=== PATIENT | male | born 1995 | race Two or more races ===

== ENCOUNTER 2019-03-09 14:09 | Emergency (ER) | payer SELFPAY ==
[2019-03-09] MEDS ORDERED: HYDROCODONE/ACETAMINOPHEN 5-325 MG TABLET PO ONE (14:50)
[2019-03-09] MEDS ORDERED: IBUPROFEN 800 MG TABLET PO ONE (14:50)
--- NOTE | 2019-03-09 14:52 | ER Document Report ---
ED Medical Screen (RME) - General Chief Complaint: Hand Injury Stated Complaint: RIGHT HAND INJURY Time Seen by Provider: 03/09/19 14:48 Mode of Arrival: Ambulatory Information source: Patient Notes: 23-year-old male presented to ED for complaint of pain and injury to the right hand. He was hanging decorations but he fell from the chair landing on his hand. He does have bruising and swelling to the right hand in the area of the metacarpal. His right fifth finger is also swollen. We will treat the patient with ibuprofen and one [place] and have him get an x-ray of the hand. Patient is alert oriented respirations regular nonlabored he is a former smoker does not drink or use any illicit drugs. He does hang drywall for living and has a history of a left elbow fracture with surgical repair. I have greeted and performed a rapid initial assessment of this patient. A comprehensive ED assessment and evaluation of the patient, analysis of test results and completion of medical decision making process will be conducted by an additional ED providers. TRAVEL OUTSIDE OF THE [place] IN LAST 30 DAYS: No Past Medical History - Social History Chew tobacco use (# tins/day): No Frequency of alcohol use: None Drug Abuse: None Physical Exam - Vital signs Vitals: Temp Pulse Resp BP Pulse Ox 97.6 F 67 20 123/60 100 03/09/19 14:18 03/09/19 14:18 03/09/19 14:18 03/09/19 14:18 03/09/19 14:18 Course - Vital Signs Vital signs: Temp Pulse Resp BP Pulse Ox 97.6 F 67 20 123/60 100 03/09/19 14:18 03/09/19 14:18 03/09/19 14:18 03/09/19 14:18 03/09/19 14:18
--- NOTE | 2019-03-09 16:02 | RADIOLOGY REPORT (SQ) ---
EXAM DESCRIPTION: HAND RIGHT 3 VIEWS COMPLETED DATE/TIME: 03/09/2019 3:08 pm REASON FOR STUDY: injury to right hand swelling and pain COMPARISON: None. EXAM PARAMETERS: NUMBER OF VIEWS: Three views. TECHNIQUE: AP, lateral and oblique radiographic images acquired of the right hand. LIMITATIONS: None. FINDINGS: MINERALIZATION: Normal. BONES: Fracture of the 5th metacarpal with angulation. JOINTS: No effusions. SOFT TISSUES: Soft tissue swelling. No foreign body. OTHER: No other significant finding. IMPRESSION: FRACTURE OF THE 5TH METACARPAL WITH ANGULATION. TECHNICAL DOCUMENTATION: JOB ID: [id number] [employer]- All Rights Reserved Reading location - IP/workstation name: [email or web address]
--- NOTE | 2019-03-09 16:57 | ER Document Report ---
ED Hand/Wrist Injury - General Chief Complaint: Hand Pain Stated Complaint: RIGHT HAND INJURY Time Seen by Provider: 03/09/19 14:48 Mode of Arrival: Ambulatory Information source: Patient, Relative TRAVEL OUTSIDE OF THE [place] IN LAST 30 DAYS: No - HPI Injury to: Hand Onset: This morning - pt. was hanging decorations while on a chair when the chair slipped out from under him and he fell on R hand. He has no other injuries. - Related Data Allergies/Adverse Reactions: No Known Allergies Allergy (Unverified 03/09/19 14:55) Past Medical History - General Information source: Patient - Social History Smoking Status: Former Smoker Chew tobacco use (# tins/day): No Frequency of alcohol use: None Drug Abuse: None Family History: None Patient has suicidal ideation: No Patient has homicidal ideation: No Past Surgical History: Reports: Hx Orthopedic Surgery - left elbow Review of Systems - Review of Systems Constitutional: No symptoms reported EENT: No symptoms reported Cardiovascular: No symptoms reported Respiratory: No symptoms reported Gastrointestinal: No symptoms reported Musculoskeletal: See HPI, Joint pain - R hand Neurological/Psychological: No symptoms reported -: Yes All other systems reviewed and negative Physical Exam - Vital signs Vitals: Temp Pulse Resp BP Pulse Ox 97.6 F 67 20 123/60 100 03/09/19 14:18 03/09/19 14:18 03/09/19 14:18 03/09/19 14:18 03/09/19 14:18 - General General appearance: Appears well In distress: None - Extremities Hand: Tender - there is moderate TTP in the area of the 5th MC with min-mod STS. There is FROM of all digits and they are N/V intact. Flexor and extensor tendons are intact. Course - Re-evaluation Re-evalutation: 03/09/19 17:05 pt's exam unchanged -- I have explained to him that we will apply a splint today and give him the name of our orthopedist for probable cast when the swelling subsides. - Vital Signs Vital signs: Temp Pulse Resp BP Pulse Ox 97.6 F 67 20 123/60 100 03/09/19 14:18 03/09/19 14:18 03/09/19 14:18 03/09/19 14:18 03/09/19 14:18 - Diagnostic Test Radiology reviewed: Reports reviewed - 5th MC fx with angulation Procedures - Immobilization Right Hand 5th digit Time completed: 17:06 Pre-Proc Neuro Vasc Exam: Normal Immobilizer type: Ulnar Performed by: RN Post-Proc Neuro Vasc Exam: Normal Alignment checked and good: Yes Discharge - Discharge Clinical Impression: Fracture, metacarpal Qualifiers: Encounter type: initial encounter Metacarpal bone: fifth Fracture type: closed Metacarpal location: shaft Fracture alignment: displaced Laterality: right Qualified Code(s): S62.326A - Displaced fracture of shaft of fifth metacarpal bone, right hand, initial encounter for closed fracture Condition: Stable Disposition: HOME, SELF-CARE Additional Instructions: rest, splint, take meds as prescribed, return if worse Prescriptions: Hydrocodone/Acetaminophen [Mccoll 5-325 mg Tablet] 1 tab PO BID #14 tablet Referrals: TOMA DOWLING DO [ACTIVE STAFF] - Follow up as needed
[2019-03-09 18:01] VITALS: BP 121/75
== END 2019-03-09 18:07 | disposition home or self-care (01) ==
LOC: ER 14:09
DX: S62.326A Displaced fracture of shaft of fifth metacarpal bone, right hand, initial encounter for closed fracture (principal); W07.XXXA Fall from chair, initial encounter
CPT/HCPCS: 99283

== ENCOUNTER 2020-01-26 07:30 | Emergency (ER) | payer SELFPAY ==
[2020-01-26 08:55] LABS: ABSOLUTE EOSINOPHILS # (AUTO) 0.1 10^3/uL (0.0-0.6); ABSOLUTE LYMPHOCYTES (AUTO) 2.1 10^3/uL (0.5-4.7); ABSOLUTE MONOCYTES (AUTO) 0.4 10^3/uL (0.1-1.4); ABSOLUTE NEUT (AUTO) 3.2 10^3/uL (1.7-8.2); BASOPHILS % (AUTO) 0.3 % (0-2); HEMATOCRIT 46.7 % (37.9-51.0); LYMPHOCYTES % (AUTO) 36.2 % (13-45); MEAN CORPUSCULAR HEMOGLOBIN 31.2 pg (27.0-33.4); MEAN CORPUSCULAR HGB CONC 34.2 g/dL (32.0-36.0); MEAN CORPUSCULAR VOLUME 91 fl (80-97); MONOCYTES % (AUTO) 6.3 % (3-13); PLATELET COUNT 143 10^3/uL (150-450); RED BLOOD COUNT 5.12 10^6/uL (4.35-5.55); RED CELL DISTRIBUTION WIDTH 13.1 % (11.5-14.0); SEGMENTED NEUTROPHILS % (AUTO) 56.2 % (42-78); TOTAL CELLS COUNTED % (AUTO) 100 %; WHITE BLOOD COUNT 5.7 10^3/uL (4.0-10.5)
[2020-01-26 09:00] LABS: APPEARANCE,URINE CLEAR; BILIRUBIN,URINE NEGATIVE (NEGATIVE); COLOR,URINE STRAW; GLUCOSE, URINE NEGATIVE (NEGATIVE); KETONES,URINE NEGATIVE (NEGATIVE); LEUKOCYTE ESTERASE,URINE NEGATIVE (NEGATIVE); NITRITE,URINE NEGATIVE (NEGATIVE); PROTEIN,URINE NEGATIVE (NEGATIVE); URINE SPECIFIC GRAVITY 1.009; UROBILINOGEN,URINE NEGATIVE mg/dL (<2.0)
[2020-01-26 09:22] LABS: ALKALINE PHOSPHATASE 56 U/L (38-126); ANION GAP 8 (5-19); ASPARTATE AMINO TRANSFERASE 27 U/L (17-59); BILIRUBIN,TOTAL 0.9 mg/dL (0.2-1.3); BLOOD UREA NITROGEN 8 mg/dL (7-20); CARBON DIOXIDE 28 mmol/L (22-30); CHLORIDE 105 mmol/L (98-107); GLUCOSE 98 mg/dL (75-110); POTASSIUM 4.3 mmol/L (3.6-5.0); TOTAL PROTEIN 8.2 g/dL (6.3-8.2)
--- NOTE | 2020-01-26 10:01 | ER Document Report ---
ED Medical Screen (RME) - General Chief Complaint: Abdominal Pain Stated Complaint: ABDOMINAL PAIN Time Seen by Provider: 01/26/20 09:58 Mode of Arrival: Ambulatory Information source: Patient Notes: 01/26/20 07:37 - ED Nursing Note by ARIADNE MONTGOMERY [employer] Num: [id number] : 1995 Patient Age: 24 Patient reports that he has been having epigastric pain for the past 2 weeks. States that he has had this for a long time but it is intermittent episodes. Describes pain as burning. States that he vomits after ingesting food or fluid. my notes 24-year-old [place] male arrives with his with chief complaint of 2 to 3-year history of GERD PUD type symptoms but over the past several weeks has been having increased epigastric pain associated with vomiting especially 1 day after eating large meals or after drinking energy drinks containing t aurine. Patient smokes one third of pack per day but denies any alcohol use. He also denies any trauma. He does admit to some constipation periodically. No one in the family has any early GERD PUD or gallbladder issues or diabetic issues. TRAVEL OUTSIDE OF THE [place] IN LAST 30 DAYS: No - HPI Onset: Last week - Related Data Allergies/Adverse Reactions: No Known Allergies Allergy (Unverified 01/26/20 07:35) Past Medical History - General Information source: Patient, Relative - - Social History Cigarette use (# per day): Yes Chew tobacco use (# tins/day): No Frequency of alcohol use: None Drug Abuse: None Lives with: Family Family history: Reviewed & Not Pertinent Past Surgical History: Reports: Hx Orthopedic Surgery - left elbow Review of Systems - Review of Systems Constitutional: No symptoms reported EENT: No symptoms reported Cardiovascular: No symptoms reported Respiratory: No symptoms reported Gastrointestinal: See HPI, Abdominal pain, Nausea, Vomiting, Constipation Genitourinary: No symptoms reported Male Genitourinary: No symptoms reported Musculoskeletal: No symptoms reported Skin: No symptoms reported Hematologic/Lymphatic: No symptoms reported Neurological/Psychological: No symptoms reported Physical Exam - Vital signs Vitals: Temp Pulse Resp BP Pulse Ox 98.9 F 54 L 16 126/85 H 100 01/26/20 07:36 01/26/20 07:36 01/26/20 07:36 01/26/20 07:36 01/26/20 07:36 Interpretation: Normal - HEENT Head: Normocephalic, Atraumatic Eyes: Normal Pupils: PERRL Mouth/Lips: Normal Mucous membranes: Normal Pharynx: Normal Neck: Normal - Respiratory Respiratory status: No respiratory distress Chest status: Nontender Breath sounds: Normal Chest palpation: Normal - Cardiovascular Rhythm: Regular Heart sounds: Normal auscultation Murmur: No - Abdominal Inspection: Normal Distension: No distension Bowel sounds: Normal Tenderness: Tender - epigastric area Organomegaly: No organomegaly - Rectal Prostate: Other - deferred - Genitourinary Scrotum: Other - Back Back: Normal - Extremities General upper extremity: Normal inspection General lower extremity: Normal inspection - Neurological Neuro grossly intact: Yes Cognition: Normal Orientation: AAOx4 [place]ell Coma Scale Eye Opening: Spontaneous [place] Coma Scale Verbal: Oriented [place] Coma Scale Motor: Obeys Commands Chanell Coma Scale Total: 15 Speech: Normal Motor strength normal: LUE, RUE, LLE, RLE Sensory: Normal - Psychological Associated symptoms: Normal affect - Skin Skin Temperature: Warm Skin Moisture: Dry Course - Vital Signs Vital signs: Temp Pulse Resp BP Pulse Ox 98.9 F 54 L 16 126/85 H 100 01/26/20 07:36 01/26/20 07:36 01/26/20 07:36 01/26/20 07:36 01/26/20 07:36 - Laboratory Result Diagrams: 01/26/20 08:13 01/26/20 08:13 Laboratory results interpreted by me: 01/26/20 08:13 Plt Count 143 L - Diagnostic Test Radiology reviewed: Reports reviewed Radiology results interpreted by me: 01/26/20 12:51 Hiatal hernia on barium swallow according to radiology and CT of abdomen within normal limits Critical Care Note - Critical Care Note Comments: I advised patient of his hiatal hernia and his who is bilingual was able to speak with him as well. Patient appeared to understand. He reports around 3 years ago while throwing some packs of shingles up to the roof he felt something give in his epigastric area. Doctor's Discharge - Discharge Clinical Impression: Hiatal hernia with GERD Abdominal pain Qualifiers: Abdominal location: epigastric Qualified Code(s): R10.13 - Epigastric pain Condition: Good Disposition: HOME, SELF-CARE Instructions: Abdominal Pain ([facility]) Additional Instructions: Return to ER symptoms persist and also follow-up with clarifier operator of choice here in [place]. Medicines as directed. This includes [id number] Prilosec and Pepcid or Mylanta. Also you must eat smaller meals and drink smaller amounts of liquids. Any over feeling will cause the hiatal hernia and reflux to become worse. Also if you apply a lot of pressure intra-abdominal by straining or lifting this may exacerbate your nausea and hiatal hernia as well. Also any energy drinks with taurine will cause more problems with your stomach as well. Avoid drinking energy drinks or large amounts of caffeinated carbonated drinks. Prescriptions: Famotidine/Ca Carb/Mag Hydrox [Pepcid Complete Tablet Chew] 1 each PO BID #30 tab.chew Omeprazole Magnesium [Prilosec Otc] 20 mg PO DAILY 30 Days #1 bottle Forms: Return to Work Print Language: Swedish
--- NOTE | 2020-01-26 11:06 | RADIOLOGY REPORT (SQ) ---
EXAM DESCRIPTION: CHEST 2 VIEWS IMAGES COMPLETED DATE/TIME: 01/26/2020 10:46 am REASON FOR STUDY: cp COMPARISON: None. EXAM PARAMETERS: NUMBER OF VIEWS: two views TECHNIQUE: Digital Frontal and Lateral radiographic views of the chest acquired. RADIATION DOSE: NA LIMITATIONS: none FINDINGS: LUNGS AND PLEURA: No opacities, masses or pneumothorax. No pleural effusion. MEDIASTINUM AND HILAR STRUCTURES: No masses or contour abnormalities. HEART AND VASCULAR STRUCTURES: Heart normal size. No evidence for failure. BONES: No acute findings. HARDWARE: None in the chest. OTHER: No other significant finding. IMPRESSION: NO ACUTE RADIOGRAPHIC FINDING IN THE CHEST. TECHNICAL DOCUMENTATION: JOB ID: [id number] 2010 [employer]- All Rights Reserved Reading location - IP/workstation name: [email or web address]
--- NOTE | 2020-01-26 11:21 | RADIOLOGY REPORT (SQ) ---
EXAM DESCRIPTION: CT ABD/PELVIS WITH IV ONLY IMAGES COMPLETED DATE/TIME: 01/26/2020 11:03 am REASON FOR STUDY: abdominal pain COMPARISON: None. TECHNIQUE: CT scan of the abdomen and pelvis performed using helical scanning technique with dynamic intravenous contrast injection. No oral contrast. Images reviewed with lung, soft tissue, and bone windows. Reconstructed coronal and sagittal MPR images reviewed. Delayed images for evaluation of the urinary system also acquired. All images stored on PACS. All CT scanners at this facility use dose modulation, iterative reconstruction, and/or weight based d osing when appropriate to reduce radiation dose to as low as reasonably achievable (ALARA). [facility]: Dose Right [facility]: CareDose [facility]: Dose Right [facility]: Teradose 4D [facility]: DidLog CONTRAST TYPE AND DOSE: contrast/concentration: Isovue 350.00 mmol/ml; Total Contrast Delivered: 88. 0 ml; Total Saline Delivered: 70.0 ml RENAL FUNCTION: Creatinine 0.79 RADIATION DOSE: CT Rad equipment meets quality standard of care and radiation dose reduction techniq ues were employed. CTDIvol: 5.4 - 7.3 mGy. DLP: 692 mGy-cm.. LIMITATIONS: None. FINDINGS: LOWER CHEST: No significant findings. No nodules or infiltrates. LIVER: Normal size. No masses. No dilated ducts. SPLEEN: Normal size. No focal lesions. PANCREAS: No masses. No significant calcifications. No adjacent inflammation or peripancreatic fluid collections. Pancreatic duct not dilated. GALLBLADDER: No identified stones by CT criteria. No inflammatory changes to suggest cholecystitis. ADRENAL GLANDS: No significant masses or asymmetry. RIGHT KIDNEY AND URETER: No solid masses. No significant calcifications. No hydronephrosis or hyd roureter. LEFT KIDNEY AND URETER: No solid masses. No significant calcifications. No hydronephrosis or hydr oureter. AORTA AND VESSELS: No aneurysm. No dissection. Renal arteries, SMA, celiac without stenosis. RETROPERITONEUM: No retroperitoneal adenopathy, hemorrhage or masses. BOWEL AND PERITONEAL CAVITY: No masses or inflammatory changes. No free fluid or peritoneal masses. APPENDIX: Normal. PELVIS: No mass. No free fluid. Normal bladder. ABDOMINAL WALL: No masses. No hernias. BONES: No significant or acute findings. OTHER: No other significant finding. IMPRESSION: No evidence of acute intra-abdominal/pelvic process. Normal appendix. TECHNICAL DOCUMENTATION: JOB ID: [id number] Quality ID # [id number]: Final reports with documentation of one or more dose reduction techniques (e.g., Au tomated exposure control, adjustment of the mA and/or kV according to patient size, use of iterative reconstruction technique) 2010 [employer]- All Rights Reserved Reading location - IP/workstation name: [email or web address]-
--- NOTE | 2020-01-26 12:00 | RADIOLOGY REPORT (SQ) ---
EXAM DESCRIPTION: BARIUM SWALLOW ESOPHAGUS IMAGES COMPLETED DATE/TIME: 01/26/2020 11:41 am REASON FOR STUDY: epigastric pain COMPARISON: None. TECHNIQUE: Under fluoroscopic guidance, patient ingested effervescent granules followed by thick and thin barium. Fluoroscopic spot images and routine radiographic images acquired and stored on PACS. 12 MM BARIUM TABLET GIVEN: Yes. No significant delay in passage. LIMITATIONS: None. FLUOROSCOPY TIME: FLUORO TIME: 1.6 minutes of fluoroscopy was used. 8 images saved to PACS. FINDINGS: NEUROMUSCULAR COORDINATION OF SWALLOW: Normal. No aspiration. ESOPHAGEAL MOTILITY: Normal peristalsis. No esophageal spasm. ESOPHAGEAL MUCOSA: Normal mucosa without masses or ulceration. GASTRO-ESOPHAGEAL JUNCTION: Tiny sliding hiatal hernia. Mild gastroesophageal reflux. NON-GI TRACT STRUCTURES: No significant finding. OTHER: No other significant finding. IMPRESSION: TINY SLIDING HIATAL HERNIA WITH MILD GASTROESOPHAGEAL REFLUX. COMMENT: Quality ID [id number]: Final reports for procedures using fluoroscopy that document radiation exp osure indices, or exposure time and number of fluorographic images (if radiation exposure indices are not available) TECHNICAL DOCUMENTATION: JOB ID: [id number] 2010 [employer]- All Rights Reserved Reading location - IP/workstation name: [email or web address]
[2020-01-26 13:26] VITALS: BP 125/73
== END 2020-01-26 13:25 | disposition home or self-care (01) ==
LOC: ER 07:30
DX: K44.9 Diaphragmatic hernia without obstruction or gangrene (principal); K21.9 Gastro-esophageal reflux disease without esophagitis; R10.13 Epigastric pain; R11.2 Nausea with vomiting, unspecified; K59.00 Constipation, unspecified; F17.210 Nicotine dependence, cigarettes, uncomplicated
CPT/HCPCS: 36415; 71046; 74177; 74220; 80053; 81001; 83690; 85025; 99285